=== PATIENT | male | born 1950 | race Caucasian/White ===

== ENCOUNTER 2018-02-07 19:07 | Emergency (ER) | payer MEDICARE, OTHER ==
[2018-02-07] MEDS ORDERED: Sodium Chloride 0.9% 1,000 ML IV ONE ×2 (19:45→20:26)
[2018-02-07] MEDS ORDERED: Ondansetron 4 MG/2 ML SDV IVPUSH ONE (19:45)
--- NOTE | 2018-02-07 19:48 | EDM.PDOC ---
ED HPI GENERAL MEDICAL PROBLEM - General Chief Complaint: Chest Pain Stated Complaint: CHEST PAIN,FEVER Time Seen by Provider: 02/07/18 19:14 Source of Information: Reports: Patient History Limitations: Reports: No Limitations - History of Present Illness INITIAL COMMENTS - FREE TEXT/NARRATIVE: 67 y/o M with subjective fevers/chills, malaise, mild cough, and diarrhea. All symptoms started today. Grandkids are ill with vomiting/diarrhea illness. No documented fever but felt hot/cold today. Mild cough. Not productive. Mild left anterior chest pain, started several hours ago at rest. Constant. Mild severity. Worse with coughing and deep breathing. No hx similar symptoms. No vomiting. He is nauseated. Has had several episodes of watery diarrhea. No abdominal pain. No blood in the stool. No recent travel or known exposure to contaminated food or water. Left Chest Pain Score (Numeric/FACES): 5 - Related Data Allergies Allergy/AdvReac Type Severity Reaction Status Date / Time No Known Allergies Allergy Verified 02/07/18 19:15 Home Meds: Home Meds Allopurinol [Zyloprim] 300 mg PO DAILY 02/07/18 [History] Carbidopa/Levodopa [Sinemet 25-100 mg Tablet] 1 tab PO DAILY 02/07/18 [History] Past Medical History - Past Health History Medical/Surgical History: Denies Medical/Surgical History HEENT History: Reports: Cataract, Impaired Vision Cardiovascular History: Reports: Hypertension Other Cardiovascular History: Murmur Respiratory History: Reports: Bronchitis, Recurrent, Pneumonia, Recurrent Genitourinary History: Reports: Renal Calculus Other Genitourinary History: decreased stream Musculoskeletal History: Reports: Arthritis, Gout Dermatologic History: Reports: Melanoma Other Dermatologic History: Melanoma 4 or 5 years ago - Past Surgical History HEENT Surgical History: Reports: None Male Surgical History: Reports: None Social & Family History - Family History Cardiac: Reports: CAD, Heart Failure Musculoskeletal: Reports: Arthritis Endocrine/Metabolic: Reports: Diabetes, type II - Tobacco Use Smoking Status *Q: Never Smoker Used Tobacco, but Quit: Yes Month/Year Tobacco Last Used: 12-13-1994 Second Hand Smoke Exposure: No - Caffeine Use Caffeine Use: Reports: Coffee - Alcohol Use Days Per Week of Alcohol Use: 7 Number of Drinks Per Day: 1 Total Drinks Per Week: 7 - Recreational Drug Use Recreational Drug Use: No ED ROS GENERAL - Review of Systems Review Of Systems: See Below Constitutional: Reports: Chills, Malaise, Weakness, Fatigue HEENT: Reports: No Symptoms Respiratory: Reports: Cough. Denies: Shortness of Breath Cardiovascular: Reports: Chest Pain Endocrine: Reports: Fatigue GI/Abdominal: Reports: Diarrhea, Nausea. Denies: Abdominal Pain : Reports: No Symptoms Musculoskeletal: Reports: No Symptoms Skin: Reports: No Symptoms Neurological: Reports: No Symptoms ED EXAM, GENERAL - Physical Exam Exam: See Below Exam Limited By: No Limitations General Appearance: Alert, WD/WN, No Apparent Distress Eye Exam: Bilateral Eye: Normal Inspection Ears: Normal External Exam Nose: Normal Inspection Throat/Mouth: Normal Inspection, Normal Oropharynx, Normal Voice, No Airway Compromise Head: Atraumatic, Normocephalic Neck: Normal Inspection, Supple, Non-Tender, Full Range of Motion Respiratory/Chest: No Respiratory Distress, Lungs Clear, Normal Breath Sounds, No Accessory Muscle Use, Chest Non-Tender Cardiovascular: Normal Peripheral Pulses, Regular Rate, Rhythm, No Edema GI/Abdominal: Soft, Non-Tender, No Distention. No: Rebound Back Exam: Normal Inspection Extremities: Normal Inspection Neurological: Alert, Oriented, Normal Cognition Psychiatric: Normal Affect, Normal Mood Skin Exam: Warm, Dry, Intact, Normal Color, No Rash Course - Vital Signs Last Recorded V/S: Last Vital Signs Temp 36.4 C 02/07/18 19:20 Pulse 69 02/07/18 20:54 Resp 18 02/07/18 20:54 BP 136/74 02/07/18 20:54 Pulse Ox 95 02/07/18 20:54 - Orders/Labs/Meds Orders: Active Orders 24 hr Category Date Time Status Chest 1V Frontal [CR] Stat Exams 02/07/18 19:28 Taken Sodium Chloride 0.9% [Normal Saline] 1,000 ml Med 02/07/18 20:26 Active IV ONETIME Medication Orders Sodium Chloride (Normal Saline) 1,000 mls @ 1,000 mls/hr IV ONETIME ONE Stop: 02/07/18 21:25 Last Admin: 02/07/18 20:52 Dose: 1,000 mls/hr Labs: Laboratory Tests 02/07/18 02/07/18 02/07/18 Range/Units 19:40 19:40 19:40 WBC 12.10 H (4.23-9.07) K/mm3 RBC 4.96 (4.63-6.08) M/mm3 Hgb 15.4 (13.7-17.5) gm/L Hct 45.5 (40.1-51.0) % MCV 91.7 (79.0-92.2) fl MCH 31.0 (25.7-32.2) pg MCHC 33.8 (32.2-35.5) g/dl RDW Std Deviation 46.0 H (35.1-43.9) fL Plt Count 128 L (163-337) K/mm3 MPV 11.2 (9.4-12.3) fl Neut % (Auto) 92.7 H (34.0-67.9) % Lymph % (Auto) 2.8 L (21.8-53.1) % [place] % (Auto) 4.2 L (5.3-12.2) % Eos % (Auto) 0.1 L (0.8-7.0) Baso % (Auto) 0.0 L (0.1-1.2) % Neut # (Auto) 11.21 H (1.78-5.38) K/mm3 Lymph # (Auto) 0.34 L (1.32-3.57) K/mm3 [place] # (Auto) 0.51 (0.30-0.82) K/mm3 Eos # (Auto) 0.01 L (0.04-0.54) K/mm3 Baso # (Auto) 0.00 L (0.01-0.08) K/mm3 Manual Slide Review Abnormal smear Sodium 140 (136-145) mEq/L Potassium 3.5 (3.5-5.1) mEq/L Chloride 105 (98-107) mEq/L Carbon Dioxide 27 (21-32) mEq/L Anion Gap 11.5 (5-15) BUN 18 (7-18) mg/dL Creatinine 1.0 (0.7-1.3) mg/dL Est Cr Clr Drug Dosing 77.39 mL/min Estimated GFR (MDRD) > 60 (>60) mL/min BUN/Creatinine Ratio 18.0 (14-18) Glucose 109 (80-115) mg/dL Calcium 8.8 (8.5-10.1) mg/dL Magnesium 1.5 L (1.8-2.4) mg/dl Total Bilirubin 1.2 H (0.2-1.0) mg/dL AST 23 (15-37) U/L ALT 25 (16-63) U/L Alkaline Phosphatase 74 (46-116) U/L Troponin I < 0.017 (0.00-0.056) ng/mL Total Protein 6.6 (6.4-8.2) g/dl Albumin 3.7 (3.4-5.0) g/dl Globulin 2.9 gm/dL Albumin/Globulin Ratio 1.3 (1-2) Urine Color (Yellow) Urine Appearance (Clear) Urine pH (5.0-8.0) Ur Specific [place] (1.005-1.030) Urine Protein (Negative) Urine Glucose (UA) (Negative) Urine Ketones (Negative) Urine Occult Blood (Negative) Urine Nitrite (Negative) Urine Bilirubin (Negative) Urine Urobilinogen (0.2-1.0) Ur Leukocyte Esterase (Negative) Urine RBC (0-5) /hpf Urine WBC (0-5) /hpf Ur Epithelial Cells (0-5) /hpf Urine Bacteria (FEW) /hpf Urine Mucus (FEW) /hpf 02/07/18 Range/Units 19:55 WBC (4.23-9.07) K/mm3 RBC (4.63-6.08) M/mm3 Hgb (13.7-17.5) gm/L Hct (40.1-51.0) % MCV (79.0-92.2) fl MCH (25.7-32.2) pg MCHC (32.2-35.5) g/dl RDW Std Deviation (35.1-43.9) fL Plt Count (163-337) K/mm3 MPV (9.4-12.3) fl Neut % (Auto) (34.0-67.9) % Lymph % (Auto) (21.8-53.1) % [place] % (Auto) (5.3-12.2) % Eos % (Auto) (0.8-7.0) Baso % (Auto) (0.1-1.2) % Neut # (Auto) (1.78-5.38) K/mm3 Lymph # (Auto) (1.32-3.57) K/mm3 [place] # (Auto) (0.30-0.82) K/mm3 Eos # (Auto) (0.04-0.54) K/mm3 Baso # (Auto) (0.01-0.08) K/mm3 Manual Slide Review Sodium (136-145) mEq/L Potassium (3.5-5.1) mEq/L Chloride (98-107) mEq/L Carbon Dioxide (21-32) mEq/L Anion Gap (5-15) BUN (7-18) mg/dL Creatinine (0.7-1.3) mg/dL Est Cr Clr Drug Dosing mL/min Estimated GFR (MDRD) (>60) mL/min BUN/Creatinine Ratio (14-18) Glucose (80-115) mg/dL Calcium (8.5-10.1) mg/dL Magnesium (1.8-2.4) mg/dl Total Bilirubin (0.2-1.0) mg/dL AST (15-37) U/L ALT (16-63) U/L Alkaline Phosphatase (46-116) U/L Troponin I (0.00-0.056) ng/mL Total Protein (6.4-8.2) g/dl Albumin (3.4-5.0) g/dl Globulin gm/dL Albumin/Globulin Ratio (1-2) Urine Color Yellow (Yellow) Urine Appearance Slt cloudy H (Clear) Urine pH 5.5 (5.0-8.0) Ur Specific [place] > or = 1.030 (1.005-1.030) Urine Protein 1+ H (Negative) Urine Glucose (UA) Negative (Negative) Urine Ketones Negative (Negative) Urine Occult Blood Trace-lysed H (Negative) Urine Nitrite Negative (Negative) Urine Bilirubin Negative (Negative) Urine Urobilinogen 0.2 (0.2-1.0) Ur Leukocyte Esterase Negative (Negative) Urine RBC 0-5 (0-5) /hpf Urine WBC 0-5 (0-5) /hpf Ur Epithelial Cells 0-5 (0-5) /hpf Urine Bacteria Moderate H (FEW) /hpf Urine Mucus Many H (FEW) /hpf Meds: Medications Generic Name Dose Route Start Last Admin Trade Name Freq PRN Reason Stop Dose Admin Sodium Chloride 1,000 mls @ 1,000 mls/hr 02/07/18 20:26 02/07/18 20:52 Normal Saline IV 02/07/18 21:25 1,000 mls/hr ONETIME ONE Administration Discontinued Medications Generic Name Dose Route Start Last Admin Trade Name Sahra PRN Reason Stop Dose Admin Sodium Chloride 1,000 mls @ 1,000 mls/hr 02/07/18 19:45 02/07/18 20:01 Normal Saline IV 02/07/18 20:44 1,000 mls/hr ONETIME ONE Administration Ondansetron HCl 4 mg 02/07/18 19:45 02/07/18 20:01 Zofran IVPUSH 02/07/18 19:46 4 mg ONETIME ONE Administration - Re-Assessments/Exams Free Text/Narrative Re-Assessment/Exam: 02/07/18 20:56 Labs show elevated WBC of 12 with neutrophilia. Electrolytes ok. UA concentrated, bacteria present but only 0-5 WBC and LCE/nitrite neg. CXR shows normal cardiac silhouette, mild PARTH and LLL atelectasis, no pneumonia. EKG shows NSR, mildyly irregular rate due to atrial premature complexes, no ST/T abnormality. Troponin negative. Highly doubt ACS as etiology of his chest pain which started many hours ago. No PE risk factors. Suspect it is related to his mild cough/viral syndrome. He does appear mildly dehydrated, due to copious diarrhea. He is well appearing and tolerating PO fluids. Feeling better so will send home. Discussed strict return precautions for worsening symptoms, otherwise PCP f/u. Departure - Departure Time of Disposition: 20:59 Disposition: Home, Self-Care 01 Clinical Impression: Viral syndrome, Dehydration, mild Diarrhea Qualifiers: Diarrhea type: presumed infectious Qualified Code(s): R19.7 - Diarrhea, unspecified - Discharge Information Referrals: Aaron Weaver Jr, MD [Primary Care Provider] - Forms: ED Department Discharge Additional Instructions: 1. Drink plenty of fluids. Start with a clear liquid diet. Advance your diet to include bland foods once you're feeling better. 2. Follow up with your primary care physician this week if still ill. 3. Return to the ED for a recheck if worse, especially if you have worsening cough, shortness of breath/difficulty breathing, abdominal pain, worsening chest pain, vomiting without keeping liquids down, or any other concerning symptoms. - My Orders Last 24 Hours: My Active Orders 02/07/18 19:28 Chest 1V Frontal [CR] Stat 02/07/18 20:26 Sodium Chloride 0.9% [Normal Saline] 1,000 ml IV ONETIME - Assessment/Plan Last 24 Hours: My Active Orders 02/07/18 19:28 Chest 1V Frontal [CR] Stat 02/07/18 20:26 Sodium Chloride 0.9% [Normal Saline] 1,000 ml IV ONETIME
[2018-02-07 20:55] VITALS: BP 136/74
--- NOTE | 2018-02-08 06:19 | CR ---
Chest: Frontal view of the chest was obtained utilizing portable technique. Comparison: No prior chest x-ray, prior chest CT of 01/24/15 is available. Heart size appears within normal limits for portable technique. Mild tortuosity of the thoracic aorta is seen. Lungs are clear with no acute parenchymal change. Bony structures are grossly intact. Impression: 1. Nothing acute is seen on frontal chest x-ray. Diagnostic code #1
== END 2018-02-07 21:38 | disposition home or self-care (01) ==
LOC: JD.ED 19:07
DX: E86.0 Dehydration (principal); B34.9 Viral infection, unspecified; R19.7 Diarrhea, unspecified; I10 Essential (primary) hypertension; Z79.899 Other long term (current) drug therapy
CPT/HCPCS: 36415; 71045; 80053; 81001; 83735; 84484; 85025; 87804; 96361; 96374; 99285; J2405; J7040; 99284

== ENCOUNTER 2021-04-21 19:52 | Emergency (ER) | payer MEDICARE, OTHER ==
[2021-04-21 20:01] VITALS: BP 155/63; PULSE 69
[2021-04-21] MEDS ORDERED: Sodium Chloride 0.9% 10 ML Syringe FLUSH PRN (20:23)
--- NOTE | 2021-04-21 20:24 | EDM.PDOC ---
ED HPI GENERAL MEDICAL PROBLEM - General Chief Complaint: Chest Pain Stated Complaint: CHEST PAIN Time Seen by Provider: 04/21/21 20:02 Source of Information: Reports: Patient, RN Notes Reviewed - History of Present Illness INITIAL COMMENTS - FREE TEXT/NARRATIVE: 71 yr old male with onset of chest pain about 6 hrs ago. Was lifting a somewhat heavy cement object when this started. Described a somewhat brief spasms or ache L central chest that comes and goes. Does not radiate to shoulder, arm or back. No hx Htn, diabetes or known CAD. Positive family hx. Hx of Parkinsons, on meds for that. Mid-Sternal Chest Pain Score (Numeric/FACES): 6 - Related Data Allergies Allergy/AdvReac Type Severity Reaction Status Date / Time No Known Allergies Allergy Verified 04/21/21 19:57 Home Meds: Home Meds Carbidopa/Levodopa [Sinemet 25-100 mg Tablet] 1 tab PO DAILY 02/07/18 [History] allopurinoL [Zyloprim] 300 mg PO DAILY 02/07/18 [History] ClonazePAM [KlonoPIN] 0.5 mg PO BEDTIME 04/21/21 [History] Past Medical History - Past Health History Medical/Surgical History: Denies Medical/Surgical History HEENT History: Reports: Cataract, Impaired Vision Cardiovascular History: Reports: Hypertension Other Cardiovascular History: Murmur Respiratory History: Reports: Bronchitis, Recurrent, Pneumonia, Recurrent Genitourinary History: Reports: Renal Calculus Other Genitourinary History: decreased stream Musculoskeletal History: Reports: Arthritis, Gout Neurological History: Reports: Parkinson's Dermatologic History: Reports: Melanoma Other Dermatologic History: Melanoma 4 or 5 years ago - Past Surgical History HEENT Surgical History: Reports: None GI Surgical History: Reports: Hernia, Inguinal Male Surgical History: Reports: None Social & Family History - Family History Cardiac: Reports: CAD, Heart Failure Musculoskeletal: Reports: Arthritis Endocrine/Metabolic: Reports: Diabetes, type II - Tobacco Use Tobacco Use Status *Q: Former Tobacco User Used Tobacco, but Quit: Yes Month/Year Tobacco Last Used: 1969 - Caffeine Use Caffeine Use: Reports: Coffee ED ROS GENERAL - Review of Systems Review Of Systems: See Below Constitutional: Denies: Fever, Chills, Diaphoresis HEENT: Reports: No Symptoms Respiratory: Denies: Shortness of Breath, Pleuritic Chest Pain, Cough Cardiovascular: Reports: Chest Pain. Denies: Edema, Lightheadedness, Palpitations GI/Abdominal: Denies: Abdominal Pain, Nausea, Vomiting Musculoskeletal: Denies: Neck Pain, Shoulder Pain, Arm Pain, Back Pain Skin: Reports: No Symptoms Neurological: Denies: Dizziness, Numbness, Tingling, Trouble Speaking, Difficulty Walking ED EXAM, GENERAL - Physical Exam Exam: See Below General Appearance: Alert, No Apparent Distress Throat/Mouth: Normal Inspection Head: Atraumatic Neck: Supple Respiratory/Chest: No Respiratory Distress, Lungs Clear, Normal Breath Sounds, Chest Non-Tender. No: Rhonchi, Wheezing Cardiovascular: Regular Rate, Rhythm, Systolic Murmur GI/Abdominal: Soft, Non-Tender. No: Guarding Back Exam: No: CVA Tenderness (L), CVA Tenderness (R) Extremities: No: Pedal Edema, Leg Pain, Increased Warmth, Redness Neurological: Alert, Oriented, No Motor/Sensory Deficits #1 Interpretation EKG Date: 04/21/21 Rhythm: Other (NSR with intermitent sinus pause) Rate (Beats/Min): 85 [place]: Normal P-Wave: Present QRS: Normal ST-T: Normal QT: Normal Course - Vital Signs Last Recorded V/S: Last Vital Signs Temp 96.9 F 04/21/21 19:59 Pulse 69 04/21/21 19:59 Resp 22 H 04/21/21 19:59 BP 155/63 H 04/21/21 19:59 Pulse Ox 95 04/21/21 19:59 - Orders/Labs/Meds Orders: Active Orders 24 hr Category Date Time Status Chest 1V Frontal [CR] Stat Exams 04/21/21 20:23 Taken Peripheral IV Insertion Adult [OM.PC] Stat Oth 04/21/21 20:24 Ordered Labs: Laboratory Tests 04/21/21 04/21/21 Range/Units 20:00 20:00 WBC 10.53 H (4.23-9.07) K/mm3 RBC 4.80 (4.63-6.08) M/mm3 Hgb 14.9 (13.7-17.5) gm/dl Hct 44.6 (40.1-51.0) % MCV 92.9 H (79.0-92.2) fl MCH 31.0 (25.7-32.2) pg MCHC 33.4 (32.2-35.5) g/dl RDW Std Deviation 46.3 H (35.1-43.9) fL Plt Count 163 (163-337) K/mm3 MPV 11.0 (9.4-12.3) fl Neut % (Auto) 72.9 H (34.0-67.9) % Lymph % (Auto) 17.9 L (21.8-53.1) % [place] % (Auto) 7.4 (5.3-12.2) % Eos % (Auto) 1.4 (0.8-7.0) Baso % (Auto) 0.2 (0.1-1.2) % Neut # (Auto) 7.67 H (1.78-5.38) K/mm3 Lymph # (Auto) 1.89 (1.32-3.57) K/mm3 [place] # (Auto) 0.78 (0.30-0.82) K/mm3 Eos # (Auto) 0.15 (0.04-0.54) K/mm3 Baso # (Auto) 0.02 (0.01-0.08) K/mm3 Sodium 143 (136-145) mEq/L Potassium 3.8 (3.5-5.1) mEq/L Chloride 107 (98-107) mEq/L Carbon Dioxide 25 (21-32) mEq/L Anion Gap 14.8 (5-15) BUN 19 H (7-18) mg/dL Creatinine 1.2 (0.7-1.3) mg/dL Est Cr Clr Drug Dosing 61.01 mL/min Estimated GFR (MDRD) 60 (>60) mL/min BUN/Creatinine Ratio 15.8 (14-18) Glucose 117 H (70-99) mg/dL Calcium 8.6 (8.5-10.1) mg/dL Total Bilirubin 0.6 (0.2-1.0) mg/dL AST 24 (15-37) U/L ALT 19 (16-63) U/L Alkaline Phosphatase 96 (46-116) U/L Troponin I < 0.017 (0.00-0.056) ng/mL Total Protein 6.8 (6.4-8.2) g/dl Albumin 3.7 (3.4-5.0) g/dl Globulin 3.1 gm/dL Albumin/Globulin Ratio 1.2 (1-2) Meds: Medications Discontinued Medications Generic Name Dose Route Start Last Admin Trade Name Sahra PRN Reason Stop Dose Admin Sodium Chloride 10 ml 04/21/21 20:23 04/21/21 20:26 Sodium Chloride 0.9% 10 Ml Syringe FLUSH 10 ml ASDIRECTED PRN Administration Keep Vein Open - Re-Assessments/Exams Free Text/Narrative Re-Assessment/Exam: 04/22/21 02:28 trop, other labs nl. EKG does show sinus pause every 3 to 4 th QRS. See EKG. No discomfort while here in the ED. CXR normal. Will send home with 48 hr holter moniter. Discharge instr. as documented. Departure - Departure Time of Disposition: 21:42 Disposition: Home, Self-Care 01 Condition: Fair Clinical Impression: Atypical chest pain Instructions: Nonspecific Chest Pain, Adult, [id number] Referrals: PCP,None [Primary Care Provider] - Forms: ED Department Discharge Additional Instructions: 48 hour holter moniter to get more information on your heart rythm. You may resume normal activity as tolerated. Follow up with Abdias Barrios in about 8 to 10 days, call for appt. Return to ED as needed if symptoms worsening in any way. Sepsis Event Note (ED) - Evaluation Sepsis Screening Result: No Definite Risk - Focused Exam Vital Signs: Vital Signs Temp Pulse Resp BP Pulse Ox 04/21/21 19:59 96.9 F 69 22 H 155/63 H 95 - My Orders Last 24 Hours: My Active Orders 04/21/21 20:23 Chest 1V Frontal [CR] Stat 04/21/21 20:24 Peripheral IV Insertion Adult [OM.PC] Stat - Assessment/Plan Last 24 Hours: My Active Orders 04/21/21 20:23 Chest 1V Frontal [CR] Stat 04/21/21 20:24 Peripheral IV Insertion Adult [OM.PC] Stat
--- NOTE | 2021-04-22 07:41 | CR ---
Chest: Portable view of the chest was obtained. Comparison: Prior chest x-ray 02/06/[address] study of 01/24/15. Heart size and mediastinum are within normal limits for portable technique. Lungs are clear with no acute parenchymal change. Old bilateral rib fractures are seen which appear to be healed. No acute osseous abnormality is appreciated. Impression: 1. Old healed rib fractures. 2. Nothing acute is otherwise seen on portable chest x-ray. Diagnostic code #2
== END 2021-04-21 22:08 | disposition home or self-care (01) ==
LOC: JD.ED 19:52
DX: R07.89 Other chest pain (principal); I10 Essential (primary) hypertension; M10.9 Gout, unspecified; G20 Parkinson's disease; Z79.899 Other long term (current) drug therapy; Z87.891 Personal history of nicotine dependence
CPT/HCPCS: 36415; 71045; 71045-26; 80053; 84484; 85025; 93005; 93010; 93225; 93226; 99284; 99285-25

== ENCOUNTER 2022-01-02 09:25 | Emergency (ER) | payer MEDICARE, OTHER ==
[2022-01-02 09:36] VITALS: BP 136/78; PULSE 60
== END 2022-01-02 11:29 | disposition home or self-care (01) ==
LOC: JD.ED 09:25
DX: S22.41XA Multiple fractures of ribs, right side, initial encounter for closed fracture (principal); I10 Essential (primary) hypertension; Z79.01 Long term (current) use of anticoagulants; W55.22XA Struck by cow, initial encounter
CPT/HCPCS: 71046; 71046-26; 99283-25

== ENCOUNTER 2022-04-07 17:07 | Emergency (ER) | payer MEDICARE, OTHER ==
[2022-04-07] MEDS ORDERED: Sodium Chloride 0.9% 10 ML Syringe FLUSH PRN (17:36)
[2022-04-07 19:59] VITALS: BP 132/71; PULSE 60
== END 2022-04-07 19:49 | disposition home or self-care (01) ==
LOC: JD.ED 17:07
DX: K92.2 Gastrointestinal hemorrhage, unspecified (principal); I10 Essential (primary) hypertension; Z79.899 Other long term (current) drug therapy
CPT/HCPCS: 36415; 80053; 83735; 85025; 99284; J3490; 99283

== ENCOUNTER 2022-04-13 12:05 | Day surgery (SDC) | payer MEDICARE, OTHER ==
[2022-04-13] MEDS ORDERED: Lidocaine 1% 4 ML ONE (12:52)
[2022-04-13] MEDS ORDERED: Propofol 200 MG/20 ML SDV ONE ×2 (12:53)
[2022-04-13 13:33] VITALS: PULSE 60
[2022-04-13] MEDS ORDERED: Lidocaine 1%/Sod Bicarbonate in NS 8.4% 1 ML Syringe IDERM PRN (13:41)
[2022-04-13] MEDS ORDERED: Sodium Chloride 0.9% 10 ML Syringe FLUSH PRN (13:41)
[2022-04-13] MEDS ORDERED: Lactated Ringers 1,000 ML IV SCH (13:45)
[2022-04-13 15:36] VITALS: BP 122/70
[2022-04-13] MEDS ORDERED: Sodium Chloride 0.9% 10 ML Syringe FLUSH SCH (21:00)
== END 2022-04-13 15:32 | disposition home or self-care (01) ==
LOC: JD.SDS 12:05
PROVIDERS: ATTEND Surgery
DX: D12.0 Benign neoplasm of cecum (principal); K57.30 Diverticulosis of large intestine without perforation or abscess without bleeding; K44.9 Diaphragmatic hernia without obstruction or gangrene; K29.00 Acute gastritis without bleeding; K29.50 Unspecified chronic gastritis without bleeding; K64.1 Second degree hemorrhoids; H54.7 Unspecified visual loss; E78.5 Hyperlipidemia, unspecified; I48.91 Unspecified atrial fibrillation; G20 Parkinson's disease; Z79.899 Other long term (current) drug therapy; Z79.01 Long term (current) use of anticoagulants
CPT/HCPCS: 43239; 45380; 88305; 88342; J2704; J7120; 00813

== ENCOUNTER 2022-07-06 09:04 | Day surgery (SDC) | payer MEDICARE, OTHER ==
[~2022-07-06 09:04] MED LIST: Lactated Ringers 1,000 ML IV SCH; Lidocaine 1%/Sod Bicarbonate in NS 8.4% 1 ML Syringe IDERM PRN; Morphine 8 MG, EPINEPHrine 0.3 MG, Cefuroxime 750 MG, Ketorolac 30 MG, Sodium Chloride ... PRN; Sodium Chloride 0.9% 10 ML Syringe FLUSH PRN; Sodium Chloride 0.9% 10 ML Syringe FLUSH SCH; Vancomycin 1 GM SDV ONE
[2022-07-06] MEDS ORDERED: Triamcinolone Acetonide 40 MG/ML 1 ML SDV ONE (09:23)
[2022-07-06] MEDS ORDERED: Bupivacaine 0.25% 10 ML SDV ONE (09:23)
[2022-07-06] MEDS ORDERED: Propofol 200 MG/20 ML SDV ONE (10:16)
[2022-07-06] MEDS ORDERED: fentaNYL 100 MCG/2 ML SDV ONE (10:16)
[2022-07-06] MEDS ORDERED: Phenylephrine HCl In 0.9% NaCl 1 MG/10 ML Vial ONE (10:16)
[2022-07-06] MEDS ORDERED: Midazolam 1 MG/ML 2 ML SDV ONE (10:16)
[2022-07-06] MEDS ORDERED: Lidocaine 1% 2 ML ONE (10:17)
[2022-07-06] MEDS ORDERED: ceFAZolin 2 GM Vial ONE (10:27)
[2022-07-06] MEDS ORDERED: EPINEPHrine 1 MG/ML SDV ONE (11:12)
[2022-07-06] MEDS ORDERED: Ropivacaine 0.5% 5 MG/ML 30 ML SDV ONE (11:12)
[2022-07-06] MEDS ORDERED: Ondansetron 4 MG/2 ML SDV IVPUSH PRN (11:38)
[2022-07-06] MEDS ORDERED: HYDROmorphone 0.5 MG/0.5 ML Syringe IVPUSH PRN (11:38)
[2022-07-06] MEDS ORDERED: fentaNYL 100 MCG/2 ML SDV IVPUSH PRN (11:38)
[2022-07-06] MEDS: Triamcinolone Acetonide 40 MG/ML 1 ML SDV ONE ×2 (12:12→12:25)
[2022-07-06] MEDS ORDERED: oxyCODONE 5 MG Tab PO PRN (14:25)
[2022-07-06 14:47] VITALS: BP 115/73; PULSE 60
== END 2022-07-06 15:58 | disposition home or self-care (01) ==
LOC: JD.SDS 09:04
PROVIDERS: ATTEND Orthopaedic Surgery
DX: M17.0 Bilateral primary osteoarthritis of knee (principal); I48.91 Unspecified atrial fibrillation; Z79.899 Other long term (current) drug therapy; Z98.890 Other specified postprocedural states; Z79.01 Long term (current) use of anticoagulants; Z87.891 Personal history of nicotine dependence
CPT/HCPCS: 0055T; 20610; 27447; 36415; 73560; 85610; 97110; 97116; 97161; A9270; C1713; C1776; J0171; J0690; J0697; J1885; J2250; J2270; J2704; J2795; J3010; J3301; J3370; J3490; J7120; 01402; 64450; 76942

== ENCOUNTER 2024-05-14 23:29 | Emergency (ER) | payer MEDICARE, OTHER ==
[2024-05-14 23:52] VITALS: PULSE 71
[2024-05-15] MEDS ORDERED: Sodium Chloride 0.9% 10 ML Syringe FLUSH PRN (00:26)
[2024-05-15 00:35] LABS: BASOPHILS ABSOLUTE AUTO 0.1 K/mm3 (0.0-0.2); BASOPHILS PERCENT AUTO 0.5 % (0.0-1.0); EOSINOPHILS ABSOLUTE AUTO 0.1 K/mm3 (0.0-0.4); EOSINOPHILS PERCENT AUTO 0.9 % (0.0-6.0); HEMATOCRIT 44.2 % (42.0-52.0); HEMOGLOBIN 14.7 gm/dl (14.0-18.0); IMMATURE GRAN ABSOLUTE AUTO 0.06 K/mm3 (0.00-0.05); IMMATURE GRAN PERCENT AUTO 0.5 % (0.0-0.4); LYMPHOCYTES ABSOLUTE AUTO 2.2 K/mm3 (1.0-4.8); LYMPHOCYTES PERCENT AUTO 20.1 % (24.0-44.0); MEAN CORPUSCULAR HEMOGLOBIN 31.3 pg (28.0-32.0); MEAN CORPUSCULAR HGB CONC 33.3 g/dl (32.0-36.0); MEAN PLATELET VOLUME 10.5 fl (9.4-12.4); MONOCYTES PERCENT AUTO 8.9 % (0.0-8.0); NEUTROPHILS ABSOLUTE AUTO 7.6 K/mm3 (1.8-7.7); NEUTROPHILS PERCENT AUTO 69.1 % (41.0-71.0); PLATELET COUNT,PLT 166 K/mm3 (150-400); WHITE BLOOD CELL COUNT,WBC 11.05 K/mm3 (3.9-11.3)
[2024-05-15 00:45] LABS: A/G RATIO 1.2 (1-2); ALBUMIN 3.9 g/dl (3.4-5.0); ANION GAP 12.7 (5-15); BILIRUBIN TOTAL 0.7 mg/dL (0.2-1.0); BUN/CREATININE RATIO 20.9 (14-18); CALCIUM 9.1 mg/dL (8.5-10.1); CREATININE 1.1 mg/dL (0.7-1.3); EST CRCL DRUG DOSING (CG) 63.7 mL/min; PROTEIN TOTAL,TP 7.2 g/dl (6.4-8.2)
[2024-05-15 00:49] LABS: POTASSIUM,K 3.7 mEq/L (3.5-5.1)
[2024-05-15] MEDS: Iopamidol 612 MG/ML 100 ML Bottle IVPUSH ONE (01:13)
[2024-05-15 02:53] VITALS: BP 154/90
== END 2024-05-15 02:45 | disposition home or self-care (01) ==
LOC: JD.ED 23:29
DX: R07.89 Other chest pain (principal); R10.12 Left upper quadrant pain; G20.A1 Parkinson's disease without dyskinesia, without mention of fluctuations; Z95.0 Presence of cardiac pacemaker; Z79.01 Long term (current) use of anticoagulants; Z79.899 Other long term (current) drug therapy
CPT/HCPCS: 36415; 71046; 74177; 80053; 83735; 84484; 85025; 93005; 99285; Q9967

== ENCOUNTER 2025-04-21 18:20 | Inpatient (IN) | payer MEDICARE, OTHER ==
[2025-04-21] MEDS: Sodium Chloride 0.9% 1,000 ML IV SCH ×2 (18:51→20:19)
[2025-04-21] MEDS: Sodium Chloride 0.9% 10 ML Syringe FLUSH PRN (18:51)
[2025-04-21 19:00] LABS: BASOPHILS PERCENT AUTO 0.2 % (0.0-1.0); EOSINOPHILS PERCENT AUTO 0.3 % (0.0-6.0); HEMATOCRIT 41.1 % (42.0-52.0); HEMOGLOBIN 13.6 gm/dl (14.0-18.0); IMMATURE GRAN ABSOLUTE AUTO 0.08 K/mm3 (0.00-0.05); IMMATURE GRAN PERCENT AUTO 0.5 % (0.0-0.4); LYMPHOCYTES ABSOLUTE AUTO 0.7 K/mm3 (1.0-4.8); LYMPHOCYTES PERCENT AUTO 4.4 % (24.0-44.0); MEAN CORPUSCULAR HEMOGLOBIN 30.1 pg (28.0-32.0); MEAN CORPUSCULAR HGB CONC 33.1 g/dl (32.0-36.0); MEAN CORPUSCULAR VOLUME 90.9 fl (83.0-99.0); MEAN PLATELET VOLUME 9.9 fl (9.4-12.4); MONOCYTES ABSOLUTE AUTO 0.9 K/mm3 (0.0-0.8); MONOCYTES PERCENT AUTO 5.7 % (0.0-8.0); NEUTROPHILS ABSOLUTE AUTO 13.4 K/mm3 (1.8-7.7); NEUTROPHILS PERCENT AUTO 88.9 % (41.0-71.0); PLATELET COUNT,PLT 140 K/mm3 (150-400); RED BLOOD CELL COUNT 4.52 M/mm3 (4.52-5.90); WHITE BLOOD CELL COUNT,WBC 15.07 K/mm3 (3.9-11.3)
[2025-04-21] MEDS ORDERED: Sodium Chloride 0.9% 10 ML Syringe FLUSH PRN (19:03)
[2025-04-21 19:19] LABS: INR 1.1; PROTHROMBIN TIME 11.6 SECONDS (9.7-12.0)
[2025-04-21 19:25] LABS: A/G RATIO 1.1 (1-2); ALANINE AMINOTRANSFERASE,ALT 12 U/L (16-63); ALBUMIN 3.3 g/dl (3.4-5.0); ALKALINE PHOSPHATASE 78 U/L (46-116); ANION GAP 9.9 (5-15); ASPARTATE AMNIOTRANSFERASE,AST 23 U/L (15-37); BILIRUBIN TOTAL 0.9 mg/dL (0.2-1.0); BLOOD UREA NITROGEN,BUN 18 mg/dL (7-18); BUN/CREATININE RATIO 16.4 (14-18); C-REACTIVE PROTEIN 0.25 mg/dL (<0.30); CALCIUM 8.8 mg/dL (8.5-10.1); CARBON DIOXIDE,CO2 27 mEq/L (21-32); CHLORIDE,CL 106 mEq/L (98-107); CREATINE KINASE,CK 90 U/L (39-308); CREATININE 1.1 mg/dL (0.7-1.3); ESTIMATED GFR 70 mL/min (>60); GLUCOSE RANDOM 130 mg/dL (70-99); MAGNESIUM 1.7 mg/dL (1.8-2.4); POTASSIUM,K 2.9 mEq/L (3.5-5.1); PROTEIN TOTAL,TP 6.2 g/dl (6.4-8.2); SODIUM,NA 140 mEq/L (136-145); TROPONIN I HIGH SENSITIVITY 26 pg/mL (<=76)
[2025-04-21] MEDS: cefTRIAXone 2 GM Vial IVPUSH ONE (19:32)
[2025-04-21] MEDS: Potassium Chloride 10 MEQ in Premix Bag 1 BAG IV SCH (20:13)
[2025-04-21] MEDS: Carbidopa/Levodopa 25-100 MG Tab PO ONE (21:05)
[2025-04-21] MEDS: Carbidopa/Levodopa 25-100 MG Tab PO SCH (22:56)
[2025-04-21] MEDS ORDERED: Ondansetron 4 MG/2 ML SDV IVPUSH PRN (23:37)
[2025-04-21 23:48] LABS: BARBITURATE SCREEN,URINE NEGATIVE (CUTOFF=200); BENZODIAZEPINES SCREEN,URINE NEGATIVE (CUTOFF=150); BUPRENORPHINE SCREEN,URINE NEGATIVE (CUTOFF=10); METHADONE SCREEN, URINE NEGATIVE (CUT0FF=200); METHAMPHETAMINES SCREEN, URINE NEGATIVE (CUTOFF=500); OXYCODONE SCREEN,URINE NEGATIVE (CUT0FF=100); THC SCREEN,URINE 20 NG/ML NEGATIVE (CUTOFF=50)
[2025-04-21 23:52] LABS: AMPHETAMINES SCREEN, URINE NEGATIVE (CUTOFF=500)
[2025-04-22] MEDS ORDERED: Carbidopa/Levodopa 25-100 MG Tab PO SCH (02:00)
[2025-04-22] MEDS: Carbidopa/Levodopa 25-100 MG Tab.ER PO SCH (02:30)
[2025-04-22] MEDS: Carbidopa/Levodopa 25-100 MG Tab PO SCH (06:36)
[2025-04-22] MEDS: metroNIDAZOLE/Normal Saline 500 MG in Premix Bag 1 BAG IV SCH (09:10)
[2025-04-22] MEDS: Finasteride 5 MG Tab PO SCH (09:15)
[2025-04-22] MEDS: Fludrocortisone 0.1 MG Tab PO SCH (09:15)
[2025-04-22] MEDS: Rosuvastatin 10 MG Tab PO SCH (09:15)
[2025-04-22] MEDS: Aspirin 81 MG Tab.EC PO SCH (09:16)
[2025-04-22] MEDS: Enoxaparin 40 MG/0.4 ML Syringe SUBCUT SCH (09:16)
[2025-04-22] MEDS: Tamsulosin 0.4 MG Cap.ER PO SCH (09:16)
[2025-04-22] MEDS ORDERED: Non-Formulary Medication 1 Each (Carbidopa/Levodopa [Carbidopa-Levo 25-100 Mg Odt] 1 EACH PO SCH (11:00)
[2025-04-22] MEDS: Midodrine 5 MG Tab PO SCH (12:03)
[2025-04-22] MEDS: Magnesium Oxide 400 MG Tab PO SCH (12:05)
[2025-04-22] MEDS: Potassium Chloride 20 MEQ Tab.ER PO ONE (12:06)
[2025-04-22] MEDS: cefTRIAXone 1 GM Vial IVPUSH SCH (18:00)
[2025-04-22] MEDS: Melatonin 3 MG Tab PO SCH (20:16)
[2025-04-22] MEDS ORDERED: LEVODOPA PO SCH (21:00)
[2025-04-22] MEDS ORDERED: CARBIDOPA PO SCH (21:00)
[2025-04-23 05:48] LABS: BASOPHILS PERCENT AUTO 0.2 % (0.0-1.0); HEMATOCRIT 41.3 % (42.0-52.0); HEMOGLOBIN 13.6 gm/dl (14.0-18.0); IMMATURE GRAN ABSOLUTE AUTO 0.08 K/mm3 (0.00-0.05); IMMATURE GRAN PERCENT AUTO 0.6 % (0.0-0.4); LYMPHOCYTES ABSOLUTE AUTO 0.5 K/mm3 (1.0-4.8); MEAN CORPUSCULAR HGB CONC 32.9 g/dl (32.0-36.0); MEAN PLATELET VOLUME 10.7 fl (9.4-12.4); MONOCYTES ABSOLUTE AUTO 0.8 K/mm3 (0.0-0.8); NEUTROPHILS ABSOLUTE AUTO 11.9 K/mm3 (1.8-7.7); NEUTROPHILS PERCENT AUTO 89.2 % (41.0-71.0); PLATELET COUNT,PLT 111 K/mm3 (150-400); RED BLOOD CELL COUNT 4.54 M/mm3 (4.52-5.90); WHITE BLOOD CELL COUNT,WBC 13.28 K/mm3 (3.9-11.3)
[2025-04-23 06:08] LABS: A/G RATIO 0.8 (1-2); ANION GAP 14.7 (5-15); BILIRUBIN TOTAL 1.4 mg/dL (0.2-1.0); BUN/CREATININE RATIO 11.1 (14-18); C-REACTIVE PROTEIN 10.03 mg/dL (<0.30); CALCIUM 8.9 mg/dL (8.5-10.1); CREATININE 0.9 mg/dL (0.7-1.3); EST CRCL DRUG DOSING (CG) 76.69 mL/min; POTASSIUM,K 3.7 mEq/L (3.5-5.1); PROTEIN TOTAL,TP 6.6 g/dl (6.4-8.2)
[2025-04-23] MEDS: Acetaminophen 325 MG Tab PO PRN (07:46)
[2025-04-23] MEDS: Timolol Maleate 0.5% Ophth Soln 5 ML Bottle EYEBOTH SCH (09:46)
[2025-04-23] MEDS: Cyanocobalamin (Vitamin B12) 1,000 MCG Tab PO SCH (09:46)
[2025-04-23] MEDS: Thiamine 100 MG Tab PO SCH (09:46)
[2025-04-23] MEDS: Pantoprazole 40 MG Tab.CR PO SCH (09:46)
[2025-04-23] MEDS ORDERED: Polyethylene Glycol 3350 Powder 17 GM Packet PO PRN (09:55)
[2025-04-23] MEDS ORDERED: Albuterol/Ipratropium 3.0-0.5 MG/3 ML Neb Soln NEB PRN (09:55)
[2025-04-23] MEDS ORDERED: Albuterol 0.083% 2.5 MG/3 ML Neb Soln NEB PRN (09:55)
[2025-04-23] MEDS: Lactated Ringers 1,000 ML IV SCH (12:13)
[2025-04-23] MEDS: Magnesium Sulfate 2 GM/50 mL 2 GM in Premix Bag 1 BAG IV ONE (12:16)
[2025-04-24 04:47] LABS: BASOPHILS PERCENT AUTO 0.1 % (0.0-1.0); EOSINOPHILS PERCENT AUTO 0.1 % (0.0-6.0); HEMATOCRIT 39.4 % (42.0-52.0); HEMOGLOBIN 12.8 gm/dl (14.0-18.0); IMMATURE GRAN ABSOLUTE AUTO 0.04 K/mm3 (0.00-0.05); IMMATURE GRAN PERCENT AUTO 0.5 % (0.0-0.4); LYMPHOCYTES ABSOLUTE AUTO 0.4 K/mm3 (1.0-4.8); LYMPHOCYTES PERCENT AUTO 4.9 % (24.0-44.0); MEAN CORPUSCULAR HEMOGLOBIN 29.6 pg (28.0-32.0); MEAN CORPUSCULAR HGB CONC 32.5 g/dl (32.0-36.0); MEAN CORPUSCULAR VOLUME 91.2 fl (83.0-99.0); MONOCYTES ABSOLUTE AUTO 0.5 K/mm3 (0.0-0.8); MONOCYTES PERCENT AUTO 5.5 % (0.0-8.0); NEUTROPHILS ABSOLUTE AUTO 7.4 K/mm3 (1.8-7.7); NEUTROPHILS PERCENT AUTO 88.9 % (41.0-71.0); PLATELET COUNT,PLT 97 K/mm3 (150-400); RED BLOOD CELL COUNT 4.32 M/mm3 (4.52-5.90); WHITE BLOOD CELL COUNT,WBC 8.34 K/mm3 (3.9-11.3)
[2025-04-24 05:12] LABS: A/G RATIO 0.8 (1-2); ALBUMIN 2.6 g/dl (3.4-5.0); ALKALINE PHOSPHATASE 53 U/L (46-116); ANION GAP 12.6 (5-15); ASPARTATE AMNIOTRANSFERASE,AST 19 U/L (15-37); BILIRUBIN TOTAL 0.9 mg/dL (0.2-1.0); BLOOD UREA NITROGEN,BUN 14 mg/dL (7-18); BUN/CREATININE RATIO 17.5 (14-18); C-REACTIVE PROTEIN 17.69 mg/dL (<0.30); CALCIUM 8.2 mg/dL (8.5-10.1); CARBON DIOXIDE,CO2 27 mEq/L (21-32); CHLORIDE,CL 101 mEq/L (98-107); CREATININE 0.8 mg/dL (0.7-1.3); EST CRCL DRUG DOSING (CG) 86.28 mL/min; ESTIMATED GFR 93 mL/min (>60); GLUCOSE RANDOM 101 mg/dL (70-99); MAGNESIUM 1.9 mg/dL (1.8-2.4); POTASSIUM,K 3.6 mEq/L (3.5-5.1); PROTEIN TOTAL,TP 5.7 g/dl (6.4-8.2); SODIUM,NA 137 mEq/L (136-145)
[2025-04-24 05:21] LABS: ALANINE AMINOTRANSFERASE,ALT < 6 U/L (16-63)
[2025-04-24 06:24] LABS: SLIDE REVIEW ABNORMAL SMEAR
[2025-04-24] MEDS: Docusate Sodium 100 MG Cap PO PRN (08:12)
[2025-04-25 04:43] LABS: BASOPHILS PERCENT AUTO 0.3 % (0.0-1.0); EOSINOPHILS ABSOLUTE AUTO 0.1 K/mm3 (0.0-0.4); EOSINOPHILS PERCENT AUTO 1.2 % (0.0-6.0); HEMATOCRIT 37.1 % (42.0-52.0); HEMOGLOBIN 12.1 gm/dl (14.0-18.0); IMMATURE GRAN ABSOLUTE AUTO 0.03 K/mm3 (0.00-0.05); IMMATURE GRAN PERCENT AUTO 0.5 % (0.0-0.4); LYMPHOCYTES ABSOLUTE AUTO 0.6 K/mm3 (1.0-4.8); LYMPHOCYTES PERCENT AUTO 9.6 % (24.0-44.0); MEAN CORPUSCULAR HEMOGLOBIN 29.5 pg (28.0-32.0); MEAN CORPUSCULAR HGB CONC 32.6 g/dl (32.0-36.0); MEAN CORPUSCULAR VOLUME 90.5 fl (83.0-99.0); MEAN PLATELET VOLUME 10.7 fl (9.4-12.4); MONOCYTES ABSOLUTE AUTO 0.6 K/mm3 (0.0-0.8); MONOCYTES PERCENT AUTO 10.7 % (0.0-8.0); NEUTROPHILS ABSOLUTE AUTO 4.6 K/mm3 (1.8-7.7); NEUTROPHILS PERCENT AUTO 77.7 % (41.0-71.0); PLATELET COUNT,PLT 107 K/mm3 (150-400); WHITE BLOOD CELL COUNT,WBC 5.96 K/mm3 (3.9-11.3)
[2025-04-25 05:16] LABS: A/G RATIO 0.9 (1-2); ALBUMIN 2.4 g/dl (3.4-5.0); ANION GAP 11.2 (5-15); BILIRUBIN TOTAL 0.6 mg/dL (0.2-1.0); C-REACTIVE PROTEIN 12.58 mg/dL (<0.30); CREATININE 0.8 mg/dL (0.7-1.3); EST CRCL DRUG DOSING (CG) 86.28 mL/min; MAGNESIUM 1.7 mg/dL (1.8-2.4); POTASSIUM,K 3.2 mEq/L (3.5-5.1); PROTEIN TOTAL,TP 5.2 g/dl (6.4-8.2)
[2025-04-25] MEDS: Potassium Chloride 20 MEQ Tab.ER PO SCH (09:17)
[2025-04-25] MEDS: Magnesium Sulf/Wat 4 GM/50 mL 4 GM in Premix Bag 1 BAG IV ONE (09:17)
[2025-04-26 04:38] LABS: BASOPHILS PERCENT AUTO 0.4 % (0.0-1.0); EOSINOPHILS ABSOLUTE AUTO 0.2 K/mm3 (0.0-0.4); EOSINOPHILS PERCENT AUTO 2.8 % (0.0-6.0); HEMATOCRIT 38.1 % (42.0-52.0); HEMOGLOBIN 12.4 gm/dl (14.0-18.0); IMMATURE GRAN ABSOLUTE AUTO 0.03 K/mm3 (0.00-0.05); IMMATURE GRAN PERCENT AUTO 0.6 % (0.0-0.4); LYMPHOCYTES ABSOLUTE AUTO 0.8 K/mm3 (1.0-4.8); LYMPHOCYTES PERCENT AUTO 14.2 % (24.0-44.0); MEAN CORPUSCULAR HEMOGLOBIN 29.7 pg (28.0-32.0); MEAN CORPUSCULAR HGB CONC 32.5 g/dl (32.0-36.0); MEAN CORPUSCULAR VOLUME 91.1 fl (83.0-99.0); MEAN PLATELET VOLUME 10.5 fl (9.4-12.4); MONOCYTES ABSOLUTE AUTO 0.7 K/mm3 (0.0-0.8); MONOCYTES PERCENT AUTO 12.3 % (0.0-8.0); NEUTROPHILS ABSOLUTE AUTO 3.7 K/mm3 (1.8-7.7); NEUTROPHILS PERCENT AUTO 69.7 % (41.0-71.0); PLATELET COUNT,PLT 123 K/mm3 (150-400); RED BLOOD CELL COUNT 4.18 M/mm3 (4.52-5.90); WHITE BLOOD CELL COUNT,WBC 5.36 K/mm3 (3.9-11.3)
[2025-04-26 05:17] LABS: A/G RATIO 0.8 (1-2); ALBUMIN 2.3 g/dl (3.4-5.0); ALKALINE PHOSPHATASE 57 U/L (46-116); ANION GAP 10.9 (5-15); ASPARTATE AMNIOTRANSFERASE,AST 28 U/L (15-37); BILIRUBIN TOTAL 0.5 mg/dL (0.2-1.0); BLOOD UREA NITROGEN,BUN 10 mg/dL (7-18); BUN/CREATININE RATIO 14.3 (14-18); C-REACTIVE PROTEIN 7.33 mg/dL (<0.30); CALCIUM 8.2 mg/dL (8.5-10.1); CARBON DIOXIDE,CO2 28 mEq/L (21-32); CHLORIDE,CL 106 mEq/L (98-107); CREATININE 0.7 mg/dL (0.7-1.3); EST CRCL DRUG DOSING (CG) 98.61 mL/min; ESTIMATED GFR 97 mL/min (>60); GLUCOSE RANDOM 91 mg/dL (70-99); MAGNESIUM 2.1 mg/dL (1.8-2.4); POTASSIUM,K 3.9 mEq/L (3.5-5.1); PROTEIN TOTAL,TP 5.3 g/dl (6.4-8.2); SODIUM,NA 141 mEq/L (136-145)
[2025-04-26 05:58] LABS: ALANINE AMINOTRANSFERASE,ALT < 6 U/L (16-63)
[2025-04-26 11:34] VITALS: BP 148/71; PULSE 60
== END 2025-04-26 14:00 | DRG 177 ==
LOC: JD.ED 18:20 → JD.MS 19:39
PROVIDERS: ADMIT Family Medicine; ATTEND Family Medicine
DX: J69.0 Pneumonitis due to inhalation of food and vomit (principal); J96.01 Acute respiratory failure with hypoxia; I42.9 Cardiomyopathy, unspecified; E87.20 Acidosis, unspecified; H26.9 Unspecified cataract; H54.7 Unspecified visual loss; N20.0 Calculus of kidney; M19.90 Unspecified osteoarthritis, unspecified site; M10.9 Gout, unspecified; E11.9 Type 2 diabetes mellitus without complications; H40.9 Unspecified glaucoma; E86.0 Dehydration; K59.09 Other constipation; I48.91 Unspecified atrial fibrillation; I25.10 Atherosclerotic heart disease of native coronary artery without angina pectoris; K27.7 Chronic peptic ulcer, site unspecified, without hemorrhage or perforation; I95.1 Orthostatic hypotension; G25.81 Restless legs syndrome; E78.00 Pure hypercholesterolemia, unspecified; E87.6 Hypokalemia; D64.9 Anemia, unspecified; G20.B2 Parkinson's disease with dyskinesia, with fluctuations; E83.42 Hypomagnesemia; N40.0 Benign prostatic hyperplasia without lower urinary tract symptoms; Z79.82 Long term (current) use of aspirin; Z79.01 Long term (current) use of anticoagulants; Z98.49 Cataract extraction status, unspecified eye; Z98.890 Other specified postprocedural states; Z85.820 Personal history of malignant melanoma of skin; Z79.899 Other long term (current) drug therapy; Z95.2 Presence of prosthetic heart valve; Z95.0 Presence of cardiac pacemaker; Z90.49 Acquired absence of other specified parts of digestive tract; Z96.659 Presence of unspecified artificial knee joint
CPT/HCPCS: 36415; 71045; 71045-26; 71046; 71046-26; 80053; 80306; 80307; 82550; 83605; 83735; 84484; 85025; 85610; 86140; 87040; 93005; 93010; 94667; 94668; 94760; 94761; 97110-GP; 97112-GP; 97116-GP; 97162-GP; 97166-GO; 97530-GP; 97535-GO; 99285; A9270-GY; J0696; J1650; J1836; J3475; J3480; J7030; J7120